=== PATIENT | female | born 1995 | race Caucasian/White ===

== ENCOUNTER 2020-07-20 09:25 | Outpatient (CLI) | payer BC ==
[2020-07-20 20:55] LABS: SARS-CoV-2 PCR by NAA Not Detected (NotDetected)
== END 2020-07-20 09:26 | disposition home or self-care (01) ==
LOC: CSHLAB 09:25
PROVIDERS: ATTEND Obstetrics & Gynecology
DX: Z01.812 Encounter for preprocedural laboratory examination (principal); Z20.822 Contact with and (suspected) exposure to COVID-19
CPT/HCPCS: 87635; U0003; U0005

== ENCOUNTER 2020-07-25 19:15 | Inpatient (IN) | payer BC ==
[2020-07-25] MEDS ORDERED: Zolpidem Tartrate 5 MG TAB PO PRN (19:43)
[2020-07-25] MEDS ORDERED: Ondansetron PF 4 MG/2 ML Vial IVP PRN (19:43)
[2020-07-25] MEDS ORDERED: Docusate 100 MG CAP PO PRN (19:43)
[2020-07-25] MEDS ORDERED: Ibuprofen 800 MG TAB PO PRN (19:43)
[2020-07-25] MEDS ORDERED: Acetaminophen 500 MG TAB PO PRN (19:43)
[2020-07-25] MEDS ORDERED: hydrALAZINE 20 MG/ML VIAL SLOW IVP PRN (19:43)
[2020-07-25] MEDS ORDERED: NS w/ Oxytocin 30 units 500 ML IVPB SCH (19:43)
[2020-07-25] MEDS ORDERED: HYDROcodone/Acetaminophen 5/325 mg Tablet PO PRN ×2 (19:43)
[2020-07-25] MEDS ORDERED: Diphenoxylate HCl/Atropine Tablet PO PRN ×2 (19:43)
[2020-07-25] MEDS ORDERED: Promethazine HCl 25 MG/ML VIAL IM PRN (19:43)
[2020-07-25] MEDS ORDERED: Misoprostol 200 MCG TAB PR PRN (19:43)
[2020-07-25] MEDS ORDERED: NS w/ Oxytocin 30 units 500 ML IV SCH ×2 (19:43)
[2020-07-25] MEDS ORDERED: Lidocaine 1% (PF) 30 ML VIAL SC PRN (19:43)
[2020-07-25] MEDS ORDERED: Butorphanol Tartrate 1 MG/ML VIAL SLOW IVP PRN (19:43)
[2020-07-25] MEDS: Lactated Ringer's 1,000 ML IV SCH (20:00)
[2020-07-25 20:17] LABS: Hemoglobin 12.5 g/dL (12.0-15.5); Mean Corpuscular HGB CONC 33.8 g/dL (32.0-36.0); Mean Corpuscular Hemoglobin 30.2 pg (27.0-33.0); Mean Corpuscular Volume 89.4 fl (81.6-98.3); Mean Platelet Volume 10.5 fl (7.4-10.4); Platelet Count 221 10x3/uL (150-450); RBC Distribution Width 13.2 % (11.5-14.5); Red Blood Cell (RBC) Count 4.14 10x6/uL (3.90-5.03); White Blood Cell (WBC) Count 11.5 10x3/uL (3.5-10.5)
[2020-07-25 20:48] LABS: Hep B Surf Ag Non-Reactive S/CO (NonReactive); Syphilis Antibody Nonreactive (Nonreactive); Syphilis Antibody Index 0.08 S/CO (<1.00 Non-Reactive)
[2020-07-25 20:52] LABS: HBSAg Index 0.21 S/CO (0-0.99)
[2020-07-25] MEDS: Misoprostol 100 MCG TAB VAG SCH (21:03)
[2020-07-25 22:33] VITALS: BMI 33.0
[2020-07-25] MEDS ORDERED: Calcium Carbonate 500 MG ChewTAB PO PRN (23:13)
[2020-07-26] MEDS: Misoprostol 100 MCG TAB VAG SCH ×5 (00:58→16:02)
[2020-07-26] MEDS ORDERED: Fentanyl 4 mcg/Bup 0.1% Cadd 100 ML ONE ×2 (04:32→11:07)
[2020-07-26] MEDS: Lactated Ringer's 1,000 ML IV SCH ×2 (04:40→16:02)
[2020-07-26] MEDS ORDERED: Fentanyl 100 MCG/2 ML VIAL ONE (04:43)
[2020-07-26] MEDS ORDERED: Lanolin Ointment 7 GM TUBE TOP PRN (12:08)
[2020-07-26] MEDS ORDERED: Ondansetron PF 4 MG/2 ML Vial IVP PRN (12:08)
[2020-07-26] MEDS ORDERED: HYDROcodone/Acetaminophen 5/325 mg Tablet PO PRN (12:08)
[2020-07-26] MEDS ORDERED: Zolpidem Tartrate 5 MG TAB PO PRN (12:08)
[2020-07-26] MEDS ORDERED: Adacel (T-DAP) 0.5 ML SYRINGE IM ONE (12:08)
[2020-07-26] MEDS ORDERED: hydrALAZINE 20 MG/ML VIAL SLOW IVP PRN (12:08)
[2020-07-26] MEDS ORDERED: Benzocaine-Menthol 82.5 ML CAN TOP PRN (12:08)
[2020-07-26] MEDS ORDERED: Preparation H Ointment 28 GM TUBE PR PRN (12:08)
[2020-07-26] MEDS ORDERED: Bisacodyl 10 MG SUPP PR PRN (12:08)
[2020-07-26] MEDS ORDERED: Misoprostol 200 MCG TAB VAG PRN (12:08)
[2020-07-26] MEDS ORDERED: diphenhydrAMINE 25 MG CAP PO PRN (12:08)
[2020-07-26] MEDS ORDERED: Milk Of Magnesia 30 ML UDCUP PO PRN (12:08)
[2020-07-26] MEDS ORDERED: Witch Hazel-Glycerin 1 EACH JAR TOP PRN (12:11)
[2020-07-26] MEDS ORDERED: Acetaminophen 325 MG TAB PO PRN (12:11)
[2020-07-26] MEDS ORDERED: NS w/ Oxytocin 30 units 500 ML IV SCH (12:15)
[2020-07-26] MEDS: Ibuprofen 800 MG TAB PO SCH (17:37)
[2020-07-26] MEDS: Ferrous Sulfate 325 MG TAB PO SCH (17:38)
[2020-07-26] MEDS: HYDROcodone/Acetaminophen 5/325 mg Tablet PO PRN (21:15)
[2020-07-26] MEDS: Docusate Calcium (SURFAK) 240 MG CAP PO SCH (21:16)
[2020-07-27] MEDS: Ibuprofen 800 MG TAB PO SCH ×3 (02:59→10:56)
[2020-07-27] MEDS: HYDROcodone/Acetaminophen 5/325 mg Tablet PO PRN ×2 (07:30→13:55)
[2020-07-27] MEDS: Ferrous Sulfate 325 MG TAB PO SCH (08:36)
[2020-07-27] MEDS ORDERED: Prenatal Vitamin 1 TAB PO SCH (09:00)
[2020-07-27] MEDS: Docusate Calcium (SURFAK) 240 MG CAP PO SCH (09:30)
[2020-07-27 12:05] VITALS: BP 121/55; TEMP 98.1
== END 2020-07-27 14:15 | disposition home or self-care (01) | DRG 806 ==
LOC: CSHLD 19:21 → CSHPP 07-26 15:25
PROVIDERS: ADMIT Obstetrics & Gynecology; ATTEND Obstetrics & Gynecology
PROC: 10E0XZZ Delivery of Products of Conception, External Approach (ICD-10-PCS; principal; 2020-07-26)
PROC: 10907ZC Drainage of Amniotic Fluid, Therapeutic from Products of Conception, Via Natural or Artificial Opening (ICD-10-PCS; 2020-07-26)
PROC: 3E033VJ Introduction of Other Hormone into Peripheral Vein, Percutaneous Approach (ICD-10-PCS; 2020-07-26)
PROC: 3E0P7VZ Introduction of Hormone into Female Reproductive, Via Natural or Artificial Opening (ICD-10-PCS; 2020-07-26)
DX: O26.893 Other specified pregnancy related conditions, third trimester (principal); O99.354 Diseases of the nervous system complicating childbirth; Z37.0 Single live birth; Z67.41 Type O blood, Rh negative; G40.909 Epilepsy, unspecified, not intractable, without status epilepticus; Z3A.39 39 weeks gestation of pregnancy; Z86.16 Personal history of COVID-19; O69.1XX0 Labor and delivery complicated by cord around neck, with compression, not applicable or unspecified
CPT/HCPCS: 51702; 85027; 86780; 86850; 86900; 86901; 87340; J2405; J2590